=== PATIENT | female | born 1960 | race Caucasian/White ===

== ENCOUNTER 2020-06-22 11:24 | Emergency (ER) | payer OTHER ==
--- OUTSIDE RECORDS SUMMARY | 2020-06-22 11:32 | XMS REPORT | Continuity of Care Document ---
:1960 Author Organization [employer] Information [employer] Care Team Providers Name Role Phone HDmessaging Unavailable Un available Problems Problem Status Onset Classification Date Comments Sourc e Date Reported UNK Active [place] [address] 016 L40.50 - Active [facility] "ARTHROPATHIC [address] PSORIASIS, UNSPEC C50.919 - Active [facility] MALIGNANT NEOPLASM 016 [place] OF UNSP SIT Fatigue (finding) Active Problem 11/08/2016 Data M H OPID 011 migrated Peter Friend from [facility] on 04/16/15. Postmenopausal Active Problem 11/08/2016 Data O PID state (finding) 011 migrated REMINGTON Linton from [facility] on 04/16/15. Fibromyositis Active Problem 11/08/2016 Data OP ID (disorder) 010 migrated REMINGTON Friend from [facility] on 04/16/15. Shoulder pain Active Problem 11/08/2016 Data OP ID (finding) [id number] migrated Peter Friend from [facility] on 04/16/15. Headache (finding) Active Problem 11/08/2016 Data OPID 008 migrated Peter Friend from [facility] on 04/16/15. 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 [facility] Polyarticular Physic ians Inflammation Esophageal Reflux Active 02/26/2014 [facility] Lower Back Pain Active 02/26/2014 [facility] Psoriatic Active 02/26/2014 [facility] Arthropathy Physicia ns Taking Female Active 02/26/2014 [facility] Hormones For Physici ans Postmenopausal HRT Gastroesophageal Resolved Problem 11/08/2016 [facility] reflux disease (disorder) Malignant tumor of Resolved Problem 11/08/2016 [facility] breast (disorder) Depressive Active Problem 11/08/2016 [facility] disorder (disorder) Medications Medication Details Route Status Patient Ordering Order Source Instructions Provider Date Aspirin Enteric 325 mg, No Longer Coated Route: PO, Active 2015 [facility] Drug form: ECTAB, Daily, Dosing Weight 77.273, kg, Start date: 11/06/16 9:00:00 METHODS ANALYST, Duration: 30 day, Stop date: 12/05/16 9:00:00 METHODS ANALYST Oxycodone Notes: (Same Inactive Hydrochloride 5 MG as: 2015 [facility] Oral Tablet Roxicodone) Sulfamethoxazole 1 tab, Route: Inactive 800 MG / PO, Drug 2015 [facility] Trimethoprim 160 Form: TAB, MG Oral Tablet Dosing Weight [Bactrim] 77.273, kg, [id number], Start date: 11/05/16 11:00:00 METHODS ANALYST, Duration: 30 day, Stop date: 12/04/16 23:00:00 METHODS ANALYST hydromorphone Route: IV, Inactive 11/05[facility] (ANES) Drug form: 2015 [facility] INJ, ONCE, Stop date: 11/05/16 10:24:00 METHODS ANALYST rocuronium (ANES) Route: IV, Inactive Drug form: 2015 [facility] INJ, ONCE, Stop date: 11/05/16 10:24:00 METHODS ANALYST acetaminophen Route: IV, Inactive 11/05[facility] (ANES) Drug form: 2015 [facility] INJ, ONCE, Stop date: 11/05/16 10:24:00 METHODS ANALYST fentaNYL (ANES) Route: IV, Inactive 11/05[facility] Drug form: 2015 [facility] INJ, ONCE, Stop date: 11/05/16 10:24:00 METHODS ANALYST Ondansetron 4 mg, Route: Inactive IVP, ONCE, 2015 [facility] Dosing Weight 77.273, kg, PRN Nausea & Vomiting, Start date: 11/05/16 10:24:00 METHODS ANALYST Hydromorphone 0.5 mg, 0.5 Inactive 11/05[facility] mL, Route: 2015 [facility] IVP, Drug form: INJ, Q5Min, Dosing Weight 77.273, kg, PRN Pain Score 7-10, Start date: 11/05/16 10:24:00 METHODS ANALYST, Duration: 4 doses or times, Stop date: Limited # of times Flumazenil Notes: (Same Inactive as: 2015 [facility] Romazicon) Naloxone Notes: Same Inactive as Narcan 2015 [facility] Sulfamethoxazole 1 tab, PO, No Longer 800 MG / [id number], # 7 Active 2015 [facility] Trimethoprim 160 tab, 0 MG Oral Tablet Refill(s) [Bactrim] Aspirin Enteric 325 mg, PO, Active Coated 325 mg oral Daily, # 14 [facility] delayed release tab, 0 tablet Refill(s) Acetaminophen 325 1 tab, PO, No Longer H MG / Hydrocodone Q4H, [facility]N [facility] 5 MG Pain, # 30 Oral Tablet [Irwin tab, 0 5/325] Refill(s), given to patient midazolam (ANES) Route: IV, Inactive Drug form: 2015 [facility] SOLN, ONCE, Stop date: 11/05/16 10:19:00 METHODS ANALYST metoclopramide Route: IV, Inactive (ANES) Drug form: 2015 [facility] INJ, ONCE, Stop date: 11/05/16 10:19:00 METHODS ANALYST ondansetron (ANES) Route: IV, Inactive H Drug form: 2015 [facility] INJ, ONCE, Stop date: 11/05/16 10:19:00 METHODS ANALYST ketOROLAC (ANES) IV, ONCE Inactive 2015 [facility] dexamethasone Route: IV, Inactive (ANES) Drug form: 2015 [facility] INJ, ONCE, Stop date: 11/05/16 10:19:00 METHODS ANALYST Acetaminophen 325 2 tab, Route: Inactive MG / Hydrocodone PO, Drug 2016 [facility] Bitartrate 10 MG Form: TAB, Oral Tablet [Irwin Dosing Weight 10/325] 77.273, kg, Q4H, PRN Pain Score 7-10, Start date: 11/05/16 10:16:00 METHODS ANALYST, Duration: 30 day, Stop date: 12/05/16 10:15:00 METHODS ANALYST Acetaminophen 325 1 tab, Route: Inactive MG / Hydrocodone PO, Dosing 2016 [facility] Bitartrate 5 MG Weight Oral Tablet [Irwin 77.273, kg, 5/325] Q4H, PRN Pain Score 1-3, Start date: 11/05/16 10:16:00 METHODS ANALYST, Duration: 30 day, Stop date: 12/05/16 10:15:00 METHODS ANALYST Dilaudid 0.5 mg, Inactive Route: IV, 2015 [facility] Q3H, Dosing Weight 77.273, kg, PRN, Start date: 11/05/16 10:16:00 METHODS ANALYST, Duration: 30 day, Stop date: 12/05/16 10:15:00 METHODS ANALYST, BTP Ketorolac 4 days. Inactive 2015 [facility] ceFAZolin (ANES) Route: IV, Inactive Drug form: 2015 [facility] INJ, ONCE, Stop date: 11/05/16 10:04:00 METHODS ANALYST lidocaine (ANES) Route: IV, Inactive Drug form: 2015 [facility] INJ, ONCE, Stop date: 11/05/16 10:04:00 METHODS ANALYST propofol (ANES) Route: IV, Inactive Drug form: 2015 [facility] INJ, ONCE, Stop date: 11/05/16 10:04:00 METHODS ANALYST LR 1000 mL INJ Route: IV, Inactive (ANES) Total Volume: 2015 [facility] 1,000, Start date: 11/05/16 9:29:00 METHODS ANALYST, Stop date: 11/05/16 10:29:00 METHODS ANALYST Cefazolin Notes: Same Inactive as: Ancef 2015 [facility] ropivacaine Notes: Inactive NOT FOR IV 2015 [facility] use Ropivacaine 5 mg/mL (49.25 mL) Epinephrine 1 mg/mL (0.5 mL) Clonidine 0.1 mg/mL (0.8 mL) Ketorolac 30 mg/mL (1 mL) Normal Saline 48.45 mL 72 HR Scopolamine 1 patch, Inactive 0.0139 MG/HR Route: [facility], 2015 [facility] Transdermal Patch Drug Form: ERFILM, Dosing Weight 77.273, kg, ONCE, Start date: 11/05/16 8:45:00 METHODS ANALYST, Stop date: 11/05/16 8:45:00 METHODS ANALYST Acetaminophen 325 1 tab, PO, No Longer 12/ M H MG / Hydrocodone Q6H, 0 Active [address] [facility] [address] Bitartrate 10 MG Refill(s) Oral Tablet tramadol 50 mg = 1 Active hydrochloride 50 tab, PO, Q6H, 2015 [facility] Oral Tablet 0 Refill(s) tizanidine 2 mg 2 mg = 1 cap, Active oral capsule PO, Bedtime, [address] [place] Refill(s) Cosentyx 300 mg =, Active SUB-Q, q4wk, 2015 [facility] 0 Refill(s) Arimidex 1 mg, PO, Active Daily, 0 2015 Refill(s) metoprolol 25 mg = 1 Active tartrate 25 mg tab, PO, BID, 2015 [facility] oral tablet # 180 tab, 0 Refill(s) duloxetine 60 MG 60 mg = 1 Active Enteric Coated cap, PO, 2015 [facility] t Capsule [Cymbalta] Daily, # 30 cap, 0 Refill(s) gabapentin 600 MG 600 mg = 1 Active Oral Tablet tab, PO, TID, 2015 [facility] ast # 270 tab, 0 Refill(s) Humira Pen 40 ; Start Date: Active MG/0.8ML 01/05/2014[facility] Subcutaneous Kit (Active) Venlafaxine HCl ER ; Start Date: Active 150 MG Oral 12/16/2013; 2013 [facility] Capsule Extended End Date: Release 24 Hour (Active) Venlafaxine HCl ER ; Start Date: Active [place] 150 MG Oral 12/16/2013; 2013 Phys[facility] Capsule Extended End Date: Release 24 Hour (Active) Estradiol 0.1 ; Start Date: Active MG/24HR 11/12/2013; 2012 [facility] Transdermal Patch End Date: Weekly (Active) CeleBREX 200 MG ; Start Date: Active Oral Capsule 10/05/2013; 2012 Physici ans End Date: (Active) Meloxicam 15 MG ; Start Date: Active 09/16/ [place] Oral Tablet 08/03/2013; 2012 Phys[facility] ns End Date: (Active) NexIUM 40 MG Oral ; Start Date: Active 08/03/ [place] Capsule Delayed 08/03/2013; 2012 [facility] Release End Date: (Active) Meloxicam 7.5 MG ; Start Date: Active 08/03/ U T Oral Tablet 08/03/2013; 2012 Physicia ns End Date: (Active) Gabapentin 600 MG ; Start Date: Active 07/24/ [facility] Oral Tablet 07/24/20132012 Physician s (Active) Venlafaxine HCl ER ; Start Date: Active 07/21/ [facility] 150 MG Oral Tablet 07/21/20132012 [facility] Extended Release (Active) 24 Hour Glucosamine Chondr (Active) Active [facility] 500 Complex Oral Physici ans Capsule Climara 0.1 (Active) Active UT MG/24HR [facility] Transdermal Patch Weekly Gabapentin 600 MG (Active) Active [facility] Tab (OR) - [facility] [id number] Allergies, Adverse Reactions, Alerts Substance Category Reaction Severity Reaction Status Date Comments S ource type Reported Not Known [facility] Phys[facility] No Known drug drug Active [facility] Drug allergy allergy Physicia ns Allergies Immunizations No Data Provided for This Section Results Order Name Results Value Reference Date Interpretation Comments Laura rce Range BACTERIAL - MRSA by PCR Negative 11/01 SEROLOGY (11/01/16 11:58 AM) [facility] ABO/Rh O POS 11/01 RESULTS /2015 [facility] BLOOD BANK Antibody Negative 11/01 RESULTS Scrn (11/01/16 11:58 AM) [facility] CHEM PANEL eGFR 108 11/01 Result /2015 Comment: The [facility] eGFR is calculated using the CKD-EPI formula. In most young, healthy individuals the eGFR will be >90 mL/min/1.73m2 . The eGFR declines with age. An eGFR of 60-89 may be normal in some populations, particularly the elderly, for whom the CKD-EPI formula has not been extensively validated. Use of the eGFR is not recommended in the following populations:< br/>
Leighann viduals with unstable creatinine concentration s, including patients and those with serious co-morbid conditions.<b r/>
Patie nts with extremes in muscle mass or diet.

The data above are obtained from the National Kidney Disease Education Program (NKDEP) which additionally recommends that when the eGFR is used in patients with extremes of body mass index for purposes of drug dosing, the eGFR should be multiplied by the estimated BMI. CHEM PANEL Creatinine 0.51 0.50 - 11/01 MH Lvl 1.40 /2015 [facility] CHEM PANEL BUN 9 7 - 22 11/01 [facility] CHEM PANEL CO2 25 24 - 32 11/01 [facility] CHEM PANEL Calcium Lvl 9.3 8.5 - 10.5 11/01 [facility] CHEM PANEL Glucose Lvl 95 70 - 99 11/01 [facility] CHEM PANEL Potassium 4.2 3.5 - 5.1 11/01 MH Lvl /2015 [facility] CHEM PANEL Chloride Lvl 107 95 - 109 11/01 [facility] CHEM PANEL Sodium Lvl 141 135 - 145 11/01 [facility] CHEM PANEL AGAP 13.2 10.0 - 11/01 MH 20.0 /2015 [facility] HEMATOLOGY Segs-Bands # 3.1 1.5 - 8.1 11/01 [facility] HEMAT[facility] Lymphocytes 1.4 1.0 - 5.5 11/01 MH # /2016 [facility] HEMATOLOGY Monocytes # 0.3 0.0 - 0.8 11/01 [facility] HEMATOLOGY Basophils 1.2 0.0 - 1.0 11/01 [facility] HEMATOLOGY Basophils # 0.1 0.0 - 0.2 11/01 [facility] HEMATOLOGY Eosinophils 0.1 0.0 - 0.5 11/01 MH # /2016 [facility] HEMATOLOGY Segs 64.1 45.0 - 11/01 MH 75.0 /2016 [facility] HEMATOLOGY Eosinophils 1.4 0.0 - 4.0 11/01 [facility] HEMATOLOGY Monocytes 5.4 2.0 - 12.0 11/01 [facility] HEMATOLOGY Lymphocytes 27.9 20.0 - 12 MH 40.0 /2016 [facility] HEMATOLOGY MCH 28.7 27.0 - 12 MH 31.0 /2016 [facility] HEMATOLOGY MPV 8.0 7.4 - 10.4 11/01 [facility] HEMATOLOGY MCV 87.1 80.0 - 11/01 MH 98.0 /2016 [facility] HEMATOLOGY Hct 40.7 36.0 - 12 MH 48.0 /2016 [facility] HEMATOLOGY RDW 12.9 11.5 - 11/01 14.5 /2016 [facility] HEMATOLOGY MCHC 33.0 32.0 - 11/01 MH 36.0 /2016 [facility] HEMATOLOGY Platelet 195 133 - 450 11/01 [facility] HEMATOLOGY RBC 4.67 4.20 - 11/01 MH 5.40 /2016 [facility] HEMATOLOGY WBC 4.9 3.7 - 10.4 11/01 [facility] HEMATOLOGY Hgb 13.4 12.0 - 11/01 16.0 /2015 [facility] HEMATOLOGY INR 0.99 0.85 - 11/01 1.17 /2015 [facility] HEMATOLOGY PT 13.3 12.0 - 11/01 MH 14.7 /2015 [facility] HEMATOLOGY PTT 28.5 22.9 - 11/01 35.8 /2016 [facility] Pathology Reports No Data Provided for This Section Diagnostic Reports Report Value Date Source Chest 2 views DX PA and lateral chest: There is minimal calcification in the aortic arch. The cardiomediastinal silhouette, pulmonary vasculature and donald are otherwise within normal limits. The lungs and pleural spaces 11/01/2016 [facility] are clear. There are no sig nificant osseous abnormalities. A right mastectomy with surgical clips in the right axillary region are noted. IMPRESSION: No acute radiographic abnormalities in the chest . [id number] Knee wo contrast MRI EXAMINATION: MRI of the left knee witho ut contrast. 10/18/2016 EVGENY Friend HISTORY: M25.562 Pain in l eft knee; anterior left knee pain and swelling; left knee medial and lateral meniscus tears; left knee effusion FINDINGS: Radiographs dated 10/08/2016 are reviewed. Multiplanar, multisequence magnetic resonance imaging of the left knee is performed with an extremity coil without contrast. Menisci: Medial: There is a horizonta l undersurface tear near the body/posterior horn junction of the medial meniscus. Lateral: There is a small lo ngitudinal tear involving the inner margin of the body of the lateral meniscus with focal meniscal blunting. Ligaments: The cruciate and collateral ligaments are intact. Extensor mechanism: The extensor mechanism is in tact. Muscles: There is normal sig nal intensity and muscle bulk of the musculature at the knee. Cartilage: There is no focal chondrosis or subch ondral marrow edema. Bone: There are no acute fra ctures. There is a lobulated, T2 hyperintense lesion within the supracondylar distal femur most consistent with a low-grade chondroid lesion such as an enchondroma or chondro id rest. There are no suspicious bone marrow rep lacing lesions. Soft tissues: There is a mod erate sized knee effusion with minimal fluid within a Kumar's cyst. IMPRESSION: 1. Horizontal undersurface t ear near the body/posterior horn junction of the left knee medial meniscus. 2. Small longitudinal tear i nvolving the inner margin of the body of the left knee lateral meniscus with focal meniscal blunting. 3. Moderate size left knee e ffusion with minimal fluid within a left knee Kumar's cyst. 4. Lobulated, T2 hyperintens e lesion within the supracondylar distal left femur most consistent with a low-grade chondroid lesion such as an enchondroma or chondroid rest. 5. Intact left knee cruciate and collateral ligaments without left knee chondrosis. Knee 4+ views bilat EXAMINATION: Bilateral knees 3 views each. 1 12/08/2015 EVGENY HANEY HISTORY: Bilateral knee pain; psoriatic arthropa thy; polyarthralgia FINDINGS: Frontal, oblique, and lateral views of each knee are performed without comparison. There are no fractures. The joint spaces are normal. There are no knee effusions. IMPRESSION: 1. Normal radiographic examination of both knees . 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 Current study was evaluated with a Obstetrical Nurse d Detection (CAD) system. Comparison is made to exams dated: 11/04/2009 mamm[facility] - [facility], 09/09/2007 mammogram and 09/04/2005 mammogram. The tissue of both breasts i s heterogeneously dense, which could obscure detection of small masses. There are benign scattered c alcifications in the left breast. Bilateral breast implants are intact. No significant masses, calci fications, or other findings are seen in either breast. There has been no significant interval change. IMPRESSION: BENIGN There is no mammographic rebeka dence of malignancy. A 1 year screening mammogram is recommended. Homar Burns M.D. cm/penrad:05/16/2016 12:52:19 Nuclear Spectroscopist: Clemencia Sams RT(R)(M), [place] maame Friend This exam was dictated and interpreted by [id number] for REMINGTON Friend. letter sent: Normal exam Mammogram BI-RADS: 2 Benign Consultation Notes No Data Provided for This Section Discharge Summaries No Data Provided for This Section History and Physicals No Data Provided for This Section Vital Signs Vital Sign Value Date Comments Source Systolic (mm Hg) 98 11/05/2016 [place] Diastolic (mm Hg) 58 11/05/[address] Respitory Rate 14 11/05/2016 [facility] Systolic (mm Hg) 133 11/05/2016 [place] Diastolic (mm Hg) 59 11/05/[address] Systolic (mm Hg) 112 11/05/2016 [place] Diastolic (mm Hg) 57 11/05/[address] Respitory Rate 12 11/05/2016 [facility] Respitory Rate 23 11/05/2016 [facility] Heart Rate 72 11/01/2016 [facility] Temperature Oral (F) 98.0 F 11/01/2016 [facility] BMI Calculated 29.24 11/01/2016 [facility] Height 162.56 cm 11/01/2016 [facility] Weight 77.273 11/01/2016 [facility] Encounters Location Location Encounter Encounter Reason Attending ADM CO Stat Source Details Type Number For Provider Date Date Visit AUDIT [id number] 07/21 Physician s AUDIT [id number] 07/24 /2012 Physician s NP1, [id number] 08/03 07/24 [place] Provider: FARHANA Marrufo RTHA, Status: Pen, Time: 1:00 PM AUDIT [id number] 08/03 Physician s AUDIT [id number] 08/25 Physician s AUDIT [id number] 08/28 Physician s AUDIT [id number] 08/31 Physician s AUDIT [id number] 09/07 Physician s EST, [id number] 09/07 08/31 [place] Provider: FARHANA Marrufo RTHA, Status: Pen, Time: 2:30 PM AUDIT [id number] 09/14 /2012 Physician s AUDIT [id number] 09/29 Physician s AUDIT [id number] 10/05 Physician s AUDIT [id number] 12/16 /2013 Physician s AUDIT [id number] 12/22 /2013 Physician s AUDIT [id number] 01/01 Physician s AUDIT [id number] 01/14 /2013 Physician s AUDIT [id number] 01/15 /2013 Physician s EST, [id number] 01/18 12/22 [place] Provider: FARHANA Marrufo RTHA, Status: Pen, Time: 3:00 PM AUDIT [id number] 02/26 /2013 Physician s EST, [id number] 04/06 02/26 [place] Provider: FARHANA Marrufo RTHA, Status: Pen, Time: 2:30 PM [facility] Outpt Diag [id number] Mate[place] 05/16 05/17 [facility] [place] [facility] [place] [facility] Outpt Diag [id number] [facility] 10/08 10/09 [facility] [place] [facility] [place] [facility] Outpt Diag [id number] [facility] 10/18 10/19 [facility] [place] [facility] [place] [facility] [id number] [place] 11/05 11/05 [facility] Surgery Pena /2015 [facility] Procedures Procedure Code Date Perfomer Comments Source section [id number] [facility] Cholecystectomy [id number] [facility] ast Hysterectomy [id number] [facility] Mastectomy [id number] [facility] Assessment and Plan Assessment and Plan Date Source Extracted from:Title: Clinical Document 11/05/2016 [facility] Author: Migue Pena MD Date: 11/05/16 Knee Arthroscopy Operative Note Date: 11/05/2016 Location: [facility] Attending: Migue Pena MD Pre-op dx: Left knee medial and lateral meniscus tear (S83.2 32A and S83.272A) Post-op dx: Left knee: Medial meniscus tear (S83.232A) Lateral meniscus tear (S83.272A) Procedure: Left knee arthroscopy with partial medial and lateral me niscectomy ([id number]) Anesthesiologist: Dr. Calle; Daisy Zaldivar CRNA Anesthesia: General Attending: Migue Pena MD 1st Assist: Maged Ornelas T-time: 15 minutes EBL: minimal UOP: no saha IVF: see anesthesia notes Intra-operative findings Chondromalacia: Patella: 0 Femur Medial: 1 Tibia Medial: 1 Trochlea: 0 Femur Lateral: 0 Tibia Lateral: 0 Loose Bodies: none Meniscus: Medial: posterior horn complex tear Lateral: oblique simle tear of body Ligaments: ACL: intact PCL: intact Clincal Indications: Patient is a 56 female with a diagnosis of knee arthritis and concomitant meniscus tears. Patient has persistent pain and mechanical symptoms that are causing the patient disability and pain. The patien t understands the pain can be generated both from the meniscus tears and underlying arthritis. The patient understands the goal of this surgery is to reduce the pain and mechanical symptoms from the men iscus tear, however this will not addres s the patients underlying arthritis and symptoms from her arthritis. X-rays demonstrate minimal osteoarthrit is. The MRI demonstrates a complex medial meniscus tear with extrusion, adjacent edema, and mild cartilage damage. The intra-operative findings are as listed above. Patient understands the risks, benefits, rational, and rehabilitation process inherent with a knee arthroscopy and partial meniscectomy. Patient expressed understanding that risks include but not limite d to bleeding, pain, infection, damage t o nearby structures: vessels, tendons, nerves and ligaments, recurrant tears, need for revision surgery, blood clots in the legs and lungs, stroke, heart attack, and . The patient agreed and gave consent to surgery as indicated. Procedure Note: Positioning: Patient was brought into e operating room and place supine on the OR table. After a successful anesthetic was applied, the operative extremity was prepped and draped in the standard fashi on with a non-sterile tourniquet on the proximal thigh. A surgical time-out was completed; antibiotics, surgical site, and allergies were confirmed. The left lower operative extremity was then exsanguin ated with the esmarch and the tourniquet was inflated. Diagnostic Arthroscopy: Medial and lateral portals were then cre ated in the standard fashion with an 11- blade scalpel. The arthroscope was inserted in the lateral portal and probe in the medial portal. The diagnostic arthrosco py was completed in the following order: the anterior compartment, lateral gutter, medial gutter, medial compartment, notch, then lateral compartment. Pertinent findings are listed above. Partial medial meniscectomy was then com pleted in the standard fashion in the medial compartment alternating between the arthroscopic shaver and arthroscopic bitter. The degenerative tear was excised ta luis care not to damage the peripheral r im, residual cartilage, or over excision. The remaining meniscus was stable to stress without any free flaps. Partial lateral meniscectomy was then co mpleted in the standard fashion in a separate lateral compartment alternating between the arthroscopic shaver and arthroscopic bitters. The degenerative tear was excised taking care not to damage the pe ripheral rim, residual cartilage, over excision, or the popliteus. The remaining lateral meniscus was stable to stress without any free flaps. After these procedures were completed, I irrigated and lavaged the knee with fluid. Arthroscopic fluid was then drained from the knee. I injected the knee with: 40 mg of kenalog and 50 cc of EDGARDO (rupiv icane, epinephrine, clonidine, kenalog) solution. The arthroscopic portals were closed wit h 4-0 nylon, and dressed with xeroform, 4x4s, ABD pads, and an bere wrap. The tourniquet was released. A surgical services assistant was utlized for the en tire procedure. He aided in positioning, retraction, and closure. The surgical services assistant increased the overall effieciency of the case thus decreasing surgical time and carolann-operative morbidity. Post-operative: Patient will recover in the PACU and dis charged home after gait training with physical therapy. Patient is weight bearing as tolerated, no range of motion restrictions. Patient will follow up in clinic for suture removal and release to physic al therapy. Prescriptions were given for Irwin and Bactrim DS and ECASA. Extracted from:Title: Clinical Document Author: Migue Pena MD Date: 11/04/16 CHIEF COMPLAINT: Left knee pain. HISTORY OF PRESENT ILLNESS: The patient is a 56-year-old female who came in with history of left knee pain in the medial and lateral aspect of the left knee. The patient complains of catching and nic ing sensation and pain in deep flexor. The patient complains of twisting injury to her left knee and now has difficulty with prolonged standing and ambulation. PAST MEDICAL HISTORY: Significant for a rthritis, back pain, skin cancer, depression, gallbladder disease, psoriasis, hemorrhoids and tumor. PAST SURGICAL HISTORY: Significant for , mastectomy, hysterectomy with reconstructions. ALLERGIES: NO KNOWN DRUG ALLERGIES. MEDICATIONS: Lopressor, gabapentin, tramadol, hydrocodone, and Cymbalta. SOCIAL HISTORY: The patient denies smoking, alcohol or drug use. FAMILY HISTORY: Positive for coronary a rtery disease, liver disease, hypertension, and arthritis. REVIEW OF SYSTEMS: A 12-system review o f systems questionnaire is completed by the patient and reviewed by myself. Systems evaluated include general, skin, HEENT, psychiatric, pulmonary, , GI, muscu loskeletal, lymphatics, endocrine, cardi ovascular, and neurologic. Pertinent positives are limited to musculoskeletal. Please see HPI for further details. PHYSICAL EXAMINATION: GENERAL: The patient is of mild obese body habitus, no acut e distress. PSYCHIATRIC: Alert and oriented x 3. Demonstrates proper m ood and affect. ABDOMEN: Soft, nontender, and nondistended. EYES: Sclerae are normal. SKIN: No evidence of soft tissue swelling, ecchymosis, or b ruising. CARDIOVASCULAR: 1+ distal radial pulse bilaterally. 1+ DP pulse bilaterally. NEUROLOGIC: 5/5 motor strength in bilat eral hip flexors, quads, hamstrings, TA, EHL, and GS. Light touch intact in L2 through S1 dermatomal distributions. The patient's left knee demonstrates me dial and lateral joint line tenderness t o palpation. Positive Alvin sign. Range of motion is 0 to 120 degrees, 5 degree alignment, and trace varus-valgus laxity. X-RAYS: The patient's left knee series demonstrate no evidence of fracture dislocation. There is some mild subchondral sclerosis but no evidence of mkut-sw-ypca articulation and no evidence of end-stage arthritic disease. The patient's left knee MRI demonstrates medial meniscus tear and lateral meniscus tear, still preserved cartilage, no evidence of a bony edema. ASSESSMENT: The patient with left knee medial and lateral meniscus tear ICD-10 code S83.232A and S83.272A. PLAN: Left knee arthroscopy, partial meniscectomy At this point, we will start the patient on Voltaren gel and home exercise program. We discussed the possibility of left knee arthroscopic treatment versus steroid injections and physical therapy. Ancef for iv abx prophylaxis ECASA for DVT pprophylaxis Risks and benefits discussed with the latasha shaikh. Risks of surgery including bleeding, pain, infection, damage to the neurovascular structures, possible recurrence of tear, blood clots (legs/lungs), stroke, heart attack and . Plan of Care Plan of Care Date Source [Q] BUN/CREATININE RATIO W/O 02/26/2014 [facility] EGFR 09/14/2013 Routine [Q] BUN/CREATININE RATIO W/O 01/15/2014 [facility] EGFR 09/14/2013 Routine [Q] BUN/CREATININE RATIO W/O 01/14/2014 [facility] EGFR 09/14/2013 RoutineFollow-up visit in 6 months 01/01/2014 Routine [Q] BUN/CREATININE RATIO W/O 01/01/2014 [facility] EGFR 09/14/2013 Routine[QLH] CMP W/EGFR 01/01/2014 Routine[QLH] TSH, 3RD GENERATION W/REFLEX TO FT4 01/01/2014 RoutineFollow-up visit in 6 months 01/01/2014 Routine [Q] BUN/CREATININE RATIO W/O 12/22/2013 [facility] EGFR 09/14/2013 Routine [Q] BUN/CREATININE RATIO W/O 12/16/2013 [facility] 09/14/2013 Routine [Q] BUN/CREATININE RATIO W/O 10/05/2013 [facility] 09/14/2013 Routine [Q] BUN/CREATININE RATIO W/O 09/29/2013 [facility] 09/14/2013 Routine MRI Spine Sacrum w/wo contrast 09/14/2013 [id number] 08/28/2013 Routine[Q] BUN/CREATININE RATIO W/O EGFR 09/14/2013 Routine MRI Spine Sacrum w/wo contrast 09/07/2013 [facility] [id number] 08/28/2013 Routine Social History Social History Date Source Social History TypeResponse 11/01/2016 [facility] [place] Substance Abuse Use: None. 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) History of Current Smoker (305.1); (Resolved) Former Smoker (V15.82); (Active) Family History Value Date Source Family history of Coronary 02/26/2014 [facility] Artery Disease (V17.49); (Active) Family history of Scleroderma (Active) Family history of Hypertension (V17.49); (Active) Family history of Coronary 01/15/2014 [facility] Artery Disease (V17.49); (Active) Family history of Scleroderma (Active) Family history of Hypertension (V17.49); (Active) Family history of Coronary 01/14/2014 [facility] Artery Disease (V17.49); (Active) Family history of Scleroderma (Active) Family history of Hypertension (V17.49); (Active) Family history of Coronary 01/01/2014 [facility] Artery Disease (V17.49); (Active) Family history of Scleroderma (Active) Family history of Hypertension (V17.49); (Active) Family history of Coronary 12/22/2013 [facility] Artery Disease (V17.49); (Active) Family history of Scleroderma (Active) Family history of Hypertension (V17.49); (Active) Family history of Coronary 12/16/2013 [facility] Artery Disease (V17.49); (Active) Family history of Scleroderma (Active) Family history of Hypertension (V17.49); (Active) Family history of Coronary 10/05/2013 [facility] Artery Disease (V17.49); (Active) Family history of Scleroderma (Active) Family history of Hypertension (V17.49); (Active) Family history of Coronary 09/29/2013 [facility] Artery Disease (V17.49); (Active) Family history of Scleroderma (Active) Family history of Hypertension (V17.49); (Active) Family history of Coronary 09/14/2013 [facility] Artery Disease (V17.49); (Active) Family history of Scleroderma (Active) Family history of Hypertension (V17.49); (Active) Family history of Coronary 09/07/2013 [facility] Artery Disease (V17.49); (Active) Family history of Scleroderma (Active) Family history of Hypertension (V17.49); (Active) Family history of Coronary 08/31/2013 [facility] Artery Disease (V17.49); (Active) Family history of Scleroderma (Active) Family history of Hypertension (V17.49); (Active) Family history of Coronary 08/28/2013 [facility] Artery Disease (V17.49); (Active) Family history of Scleroderma (Active) Family history of Hypertension (V17.49); (Active) Family history of Coronary 08/25/2013 [facility] Artery Disease (V17.49); (Active) Family history of Scleroderma (Active) Family history of Hypertension (V17.49); (Active) Family history of Coronary 08/03/2013 [facility] Artery Disease (V17.49); (Active) Family history of Scleroderma (Active) Family history of Hypertension (V17.49); (Active) Family history of Coronary 07/24/2013 [facility] Artery Disease (V17.49); (Active) Family history of Scleroderma (Active) Family history of Hypertension (V17.49); (Active) Advance Directives Order Name Results Value Date Source Advance Directives Advance Directives No Advance 02/26/2014 [facility] Directives available. Advance Directives Advance Directives No Advance 01/15/2014 [facility] Directives available. Advance Directives Advance Directives No Advance 01/14/2014 [facility] Directives available. Advance Directives Advance Directives No Advance 01/01/2014 [facility] Directives available. Advance Directives Advance Directives No Advance 12/22/2013 [facility] Directives available. Advance Directives Advance Directives No Advance 12/16/2013 [facility] Directives available. Advance Directives Advance Directives No Advance 10/05/2013 [facility] Directives available. Advance Directives Advance Directives No Advance 09/29/2013 [facility] Directives available. Advance Directives Advance Directives No Advance 09/14/2013 [facility] Directives available. Advance Directives Advance Directives No Advance 09/07/2013 [facility] Directives available. Advance Directives Advance Directives No Advance 08/31/2013 [facility] Directives available. Advance Directives Advance Directives No Advance 08/28/2013 [facility] Directives available. Advance Directives Advance Directives No Advance 08/25/2013 [facility] Directives available. Advance Directives Advance Directives No Advance 08/03/2013 [facility] Directives available. Advance Directives Advance Directives No Advance 07/24/2013 [facility] Directives available. Advance Directives Advance Directives No Advance 07/21/2013 [facility] Directives available. Functional Status No Data Provided for This Section
--- OUTSIDE RECORDS SUMMARY | 2020-06-22 11:34 | XMS REPORT | Continuity of Care Document ---
:1960 Author Organization [facility] t Address [address] [place] [address] Care Team Providers Name Role Phone JIMMY Attending Clinician Unavailable PASTORA Attending Clinician Unavailable BHAVYA Attending Clinician Unavailable Elayne Attending Clinician Unavailable TARA Attending Clinician Unavailable Yoandy Pacheco Attending Clinician Fletcher Marquez Attending Clinician NELIDA Attending Clinician Unavailable ALLYSON Attending Clinician [facility] Attending Clinician Unavailable [facility] Attending Clinician Unavailable Josef Holly Attending Clinician ANTONI Attending Clinician Unavailable Problems Condition Condition Condition Status Onset Resolution Last Treating Co mments Source Name Details Category Date Date Treatment Clinician Date UNK Diagnosis Active 2015-112016-11-05 Mem oria 2-09 06:41:00 l UNK 00:00: [place] 00 Active 10/26/2016 [place] L40.50 - Diagnosis Active 2015-112016-11-12 M emoria "ARTHROPAT - 15:40:00 l [facility] L40.50 - 00:01: Darrius gregorio PSORIASIS, "ARTHROPAT 00 UNSPEC HIC PSORIASIS, UNSPEC Active 10/08/2016 [facility] [place] C50.919 - Diagnosis Active 2016-05-16 Memoria MALIGNANT 6-14 11:22:00 l NEOPLASM C50.919 00:01: Shayla nn OF UNSP - 00 SIT MALIGNANT NEOPLASM OF UNSP SIT Active 05/01/2016 [facility] [place] Fatigue Problem Active 2016-11-08 Casimiro melodie (finding) 3- 01:48:45 l Fatigue 00:00: [place] (finding) 00 Active 02/06/2011 Problem 11/08/2016 Data migrated from [employer] on 04/16/15. Peter Alexandra [place] Postmenopa Problem Active 2016-11-08 Peter weinstein usal state 3- 01:48:45 l (finding) 00:00: [place] Postmenopa 00 usal state (finding) Active 02/06/2011 Problem 11/08/2016 Data migrated from [employer] on 04/16/15. Peter Alexandra [place] Fibromyosi Problem Active 2016-11-08 Peter weinstein tis - 01:48:45 l (disorder) 00:00: Darrius n Fibromyosi 00 tis (disorder) Active 03/07/2010 Problem 11/08/2016 Data migrated from [employer] on 04/16/15. Peter Alexandra [facility] Shoulder Problem Active 2016-11-08 Mem oria pain 04-15 01:48:45 l (finding) Shoulder 00:00: Her torres pain 00 (finding) Active 04/15/2008 Problem 11/08/2016 Data migrated from [employer] on 04/16/15. Peter Alexandra [facility] Headache Problem Active 2016-11-08 Mem oria (finding) - 01:48:45 l Headache 00:00: Darrius n (finding) 00 Active 12/08/2007 Problem 11/08/2016 Data migrated from [employer] on 04/16/15. Peter Alexandra [facility] History of History of Problem Resolve Univers fibromyosi fibromyosi HL7.CCDAR2 d ity of tis tis [place] [facility] ans History of History of Problem Resolve Univers hematuria hematuria HL7.CCDAR2 d ity of [place] Physici ans History of History of Problem Resolve Univers malignant malignant HL7.CCDAR2 d ity of neoplasm neoplasm [place] of breast of breast Phys ici ans History of History of Problem Resolve Univers Skin Skin HL7.CCDAR2 d ity of Cancer Cancer [place] [facility] Inflammato Inflammato Problem Active U nivers ry ry HL7.CCDAR2 it[place] of polyarthro [place]arthro [place] anival anival Physici ans Esophageal Esophageal Problem Active U nivers reflux reflux HL7.CCDAR2 ity of [place] [facility] ans Muscle Muscle Problem Active Univers spasm spasm HL7.CCDAR2 ity of [place] [facility] ans Psoriasis Psoriasis Problem Active Uni vers HL7.CCDAR2 ity of [place] [facility] ans Cervicalgi Cervicalgi Problem Active U nivers a a HL7.CCDAR2 ity of [place] [facility] ans Lump or Lump or Problem Active Univers mass in mass in HL7.CCDAR2 ity of breast breast [place] [facility] Urinary Urinary Problem Active Univers tract tract HL7.CCDAR2 [place] Nasal Nasal Problem Active Univers vestibulit vestibulit HL7.CCDAR2 ity of is is [place] [facility] ans Rhinitis Rhinitis Problem Active Unive rs HL7.CCDAR2 ity of [place] [facility] ans RAD RAD Problem Active Univers (reactive (reactive HL7.CCDAR2 ity of airway airway [place] disease) disease) Physic i ans H. H. Problem Active Univers influenzae influenzae HL7.CCDAR2 [place] infection [place] Acute URI Acute URI Problem Active Uni vers HL7.CCDAR2 ity of [place] [facility] ans Laryngotra Laryngotra Problem Active U nivers cheitis cheitis HL7.CCDAR2 ity of [place] [facility] ans Acute Acute Problem Active Univers cystitis cystitis HL7.CCDAR2 it y of [place] [facility] ans Nodular Nodular Problem Active Univers lesion on lesion on HL7.CCDAR2 [place]y of surface [place] skin skin [place] ans Lip lesion Lip lesion Problem Active U nivers HL7.CCDAR2 ity of [place] [facility]ici ans Pain, low Pain, low Problem Active Uni vers back back HL7.CCDAR2 ity of [place] [facility] ans 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.CCDAR2 ity of female female [place] breast breast Physici ans Dupuytren' Dupuytren' Problem Active U nivers s s HL7.CCDAR2 [place] of contractur contractur [place] Breast Breast Problem Active Univers cancer cancer HL7.CCDAR2 ity of [place] [facility] ans Psoriatic Psoriatic Problem Active Uni vers arthropath arthropath HL7.CCDAR2 ity of y y [place] [facility] ans Postmenopa Postmenopa Problem Active U nivers usal usal HL7.CCDAR2 ity of hormone hormone [place] replacemen replacemen Ph ysici t therapy t therapy ans Parotitis Parotitis Problem Active Uni vers HL7.CCDAR2 ity of [place] [facility] ans Cardiac Cardiac Problem Active Univers arrhythmia arrhythmia HL7.CCDAR2 ity of [place] [facility] ans Palpitatio Palpitatio Problem Active U nivers ns ns HL7.CCDAR2 ity of [place] [facility] ans At risk At risk Problem Active Univers for for HL7.CCDAR2 ity of coronary coronary [place] artery artery Physici disease disease ans Tachycardi Tachycardi Problem Active U nivers a a HL7.CCDAR2 ity of [place] Physici ans Tear of Tear of Problem Active Univers medial medial HL7.CCDAR2 ity of meniscus meniscus [place] of knee, of knee, Physic i left, left, ans initial initial encounter encounter Complex Complex Problem Active Univers tear of tear of HL7.CCDAR2 ity of medial medial [place] meniscus meniscus Physic i as current as current an s injury, injury, left, left, initial initial encounter encounter Complex Complex Problem Active Univers tear of tear of HL7.CCDAR2 ity of lateral lateral [place] meniscus meniscus Physic i of left of left ans knee knee Depressive Depressive Problem Active U nivers disorder disorder HL7.CCDAR2 it y of [place] Physici ans Pain in Pain in Problem Active Univers left knee left knee HL7.CCDAR2 ity of [place] Physici ans Multiple Multiple Problem Active Unive rs joint pain joint pain HL7.CCDAR2 ity of [place] [facility]ici ans Limb pain Limb pain Problem Active Uni vers HL7.CCDAR2 ity of [place] [facility]ici ans Degenerati Degenerati Problem Active U nivers on of on of HL7.CCDAR2 ity of cervical cervical [place] interverte interverte Ph ysici bral disc bral disc ans History of History of Problem Resolve Univers fibrocysti fibrocysti HL7.CCDAR2 d ity of c disease c disease [place] of breast of breast Phys ici ans History of History of Problem Resolve Univers H/O breast H/O breast HL7.CCDAR2 d ity of reconstruc reconstruc [place] t[place]ion [place]ici ans Vitamin D Vitamin D Problem Active Uni vers insufficie insufficie HL7.CCDAR2 ity of ncy ncy [place] [facility] Depression Problem Active 2014-02-26 M emoria 20:47:10 l [place] Depression Active 02/26/2014 [place] [facility] Joint Problem Active 2014-02-26 Memor ia Pain, 20:47:10 l Localized Joint Darrius n In More Pain, Than One Localized Joint In More Than One Joint Active 4 [place] [facility] Urinary Problem Active 2014-02-26 Casimiro melodie Tract 20:47:10 l Infection Urinary Herm alin Tract Infection Active 4 [place] [facility] Symmetric Problem Active 2014-02-26 Me moria Polyarticu 20:47:10 l lar [place] Inflammati Symmetric on Polyarticu lar Inflammati on Active 02/26/2014 [place] [facility] Esophageal Problem Active 2014-02-26 M emoria Reflux 20:47:10 l [place] Esophageal Reflux Active 4 [place] [facility] Lower Back Problem Active 2014-02-26 M emoria Pain 20:47:10 l Lower [place] Back Pain Active 4 [place] [facility] Psoriatic Problem Active 2014-02-26 Me moria Arthropath 20:47:10 l y [place] Psoriatic Arthropath y Active 02/26/2014 [facility] Taking Problem Active 2014-02-26 Memor ia Female 20:47:10 l Hormones Taking Darrius n For Female Postmenopa Hormones usal HRT For Postmenopa usal HRT Active 4 [place] [facility] Allergies, Adverse Reactions, Alerts Allergy Allergy Status Severity Reaction(s) Onset Inactive Treating Comm ents Source Name Type Date Date Clinician Not Not Active Memoria Known Known l [place] No Known No Known Active Memori a Drug Drug l Allergie Allergie Darrius n s s Family History Family Member Diagnosis Comments Start Date Stop Date Source Unknown Family Family history of Family History University of Member Coronary Artery [place] [facility]icians Disease Unknown Family Family history of Family History University of Member Scleroderma [place] [facility] Unknown Family Family history of Family History University of Member Hypertension [place] Physic ians Unknown Family Family History 2013-07-24 2013-07-24 Memori al [place] Member 17:15:37 17:15:37 Father Family history of Univers ity of Heart disease [place] Physi cians Brother Family history of Univers ity of Heart disease [place] [facility] Social History Social Habit Start Date Stop Date Quantity Comments Source Social History 2014-02-26 2014-02-26 Brown Gisela carmen 20:47:10 20:47:10 Smoking Status Start Date Stop Date Source Former smoker [facility] Physicians Medications Ordered Filled Start Stop Current Ordering Indication Dosage Frequency Signature Comments Components Source Medication Medication Date Date Medication? Clinician (SIG) Name Name Folic Acid Folic Acid 2017-11 Yes REINA 1 QD TAKE ONE Univers 1 MG Oral 1 MG Oral 1-01 FLETCHER TABLET BY ity of Tablet Tablet 10:06: MARQUEZ MOUTH [place] 01 M.D. DAILY Physici ans Methotrexat Methotrexat 2017- Yes REINA 8 1xW TAKE 8 Univers e 2.5 MG e 2.5 MG 0-08 FLETCHER TABLET ity of Oral Tablet Oral Tablet 09:29: MARQUEZ Weekly [place] 01 M.D. Physici ans Diclofenac Diclofenac Yes REINA Apply 4 Univers Sodium 1 % Sodium 1 % 2-23 FLETCHER grams ity of Transdermal Transdermal 00:00: MARQUEZ topically [place] Gel Gel 00 M.D. to knees Physici twice ans daily as needed. TiZANidine TiZANidine 2016-11 Yes REINA TAKE 1 Univers HCl - 4 MG HCl - 4 MG 2-12 FLETCHER TABLET BY ity of Oral Tablet Oral Tablet 16:28: MARQUEZ MOUTH AT [place] 56 M.D. BEDTIME Physici ans Gabapentin Gabapentin 2016-11 Yes REINA TAKE 1 Univers 600 MG Oral 600 MG Oral 2-12 FLETCHER TABLET BY ity of Tablet Tablet 16:27: MARQUEZ MOUTH 3 [place] 59 M.D. TIMES A Physici DAY ans Metoprolol Metoprolol Yes MOHAMMAD Q12H Take 1 Univers Succinate Succinate 8-10 MADJID tablet by ity of ER 25 MG ER 25 MG 09:26: M.D. mouth [place] Oral Tablet Oral Tablet 42 every 12 Physici Extended Extended hours ans Release 24 Release 24 Hour Hour Sertraline Sertraline Yes SHAOJIE QD TAKE 1 Univers HCl - 100 HCl - 100 1-13 GUILLORY M.D. TABLET ity of MG Oral MG Oral 00:00: DAILY. [place] Tablet Tablet 00 Physici ans Aspirin 2015-11 No 325 mg, Memoria Enteric 2-20 Route: PO, l Coated 15:00: Drug form: Shayla nn 00 ECTAB, Daily, Dosing Weight 77.273, kg, Start date: 11/06/16 9:00:00 IMPROVEMENT MANAGER, Duration: 30 day, Stop date: 12/05/16 9:00:00 IMPROVEMENT MANAGER Oxycodone 2015-11 No Notes: Memori a Hydrochlori 01-06 (Same as: l de 5 MG 17:08: Roxicodone Herm alin Oral Tablet ) Sulfamethox 2015-11 No 1 tab, Casimiro melodie azole 800 01-06 Route: PO, l MG / 17:00: Drug Form: [place] Trimethopri 00 TAB, m 160 MG Dosing Oral Tablet Weight [Bactrim] 77.273, kg, [id number], Start date: 11/05/16 11:00:00 IMPROVEMENT MANAGER, Duration: 30 day, Stop date: 12/04/16 23:00:00 IMPROVEMENT MANAGER hydromorpho 2015-11 No Route: IV, Memoria ne (ANES) 01-06 Drug form: l 16:24: INJ, ONCE, Stop date: 11/05/16 10:24:00 IMPROVEMENT MANAGER rocuronium 2015-11 No Route: IV, M emoria (ANES) 01-06 Drug form: l 16:24: INJ, ONCE, Stop date: 11/05/16 10:24:00 IMPROVEMENT MANAGER acetaminoph 2015-11 No Route: IV, Memoria en (ANES) 01-06 Drug form: l 16:24: INJ, ONCE, Stop date: 11/05/16 10:24:00 IMPROVEMENT MANAGER fentaNYL 2015-11 No Route: IV, Mem oria (ANES) 01-06 Drug form: l 16:24: INJ, ONCE, Stop date: 11/05/16 10:24:00 IMPROVEMENT MANAGER Ondansetron 2015-11 No 4 mg, Memor ia 01-06 Route: l 16:24: IVP, ONCE, Dosing Weight 77.273, kg, PRN Nausea & Vomiting, Start date: 11/05/16 10:24:00 IMPROVEMENT MANAGER Hydromorpho 2015-11 No 0.5 mg, Mem oria ne 01-06 0.5 mL, l 16:24: Route: IVP, Drug form: INJ, Q5Min, Dosing Weight 77.273, kg, PRN Pain Score 7-10, Start date: 11/05/16 10:24:00 IMPROVEMENT MANAGER, Duration: 4 doses or times, Stop date: Limited # of times Flumazenil 2015-11 No Notes: Memor ia - (Same as: l 16:24: Romazicon) Naloxone 2015-11 No Notes: Memoria 01-06 Same as l 16:24: Narcan Sulfamethox 2015-11 No 1 tab, PO, Memoria azole 800 01-06 [id number], # l MG / 16:21: 7 tab, 0 [place] Trimethopri 00 Refill(s) m 160 MG Oral Tablet [Bactrim] Aspirin 2015-11 Yes 325 mg, Memoria Enteric 19 PO, Daily, l Coated 325 16:21: # 14 tab, He rmann mg oral 00 0 delayed Refill(s) release tablet Acetaminoph 2015-11 No 1 tab, PO, Memoria en 325 MG / 01-06 Q4H, PRN l Hydrocodone 16:21: Pain, # 30 [place] Bitartrate 00 tab, 0 5 MG Oral Refill(s), Tablet given to [Earle patient 5/325] midazolam 2015-11 No Route: IV, Me moria (ANES) 01-06 Drug form: l 16:19: SOLN, ONCE, Stop date: 11/05/16 10:19:00 IMPROVEMENT MANAGER metoclopram 2015-11 No Route: IV, Memoria rick (ANES) 01-06 Drug form: l 16:19: INJ, ONCE, Stop date: 11/05/16 10:19:00 IMPROVEMENT MANAGER ondansetron 2015-11 No Route: IV, Memoria (ANES) 01-06 Drug form: l 16:19: INJ, ONCE, Stop date: 11/05/16 10:19:00 IMPROVEMENT MANAGER ketOROLAC 2015-11 No IV, ONCE Casimiro melodie (ANES) 01-06 l 16:19: dexamethaso 2015-11 No Route: IV, Memoria ne (ANES) 01-06 Drug form: l 16:19: INJ, ONCE, Stop date: 11/05/16 10:19:00 IMPROVEMENT MANAGER Acetaminoph 2015-11 No 2 tab, Casimiro melodie en 325 MG / 01-06 Route: PO, l Hydrocodone 16:16: Drug Form: [place] Bitartrate 00 TAB, 10 MG Oral Dosing Tablet Weight [Earle 77.273, 10/325] kg, Q4H, PRN Pain Score 7-10, Start date: 11/05/16 10:16:00 IMPROVEMENT MANAGER, Duration: 30 day, Stop date: 12/05/16 10:15:00 IMPROVEMENT MANAGER Acetaminoph 2015-11 No 1 tab, Casimiro melodie en 325 MG / 2-19 Route: PO, l Hydrocodone 16:16: Dosing Herm alin Bitartrate 00 Weight 5 MG Oral 77.273, Tablet kg, Q4H, [Earle PRN Pain 5/325] Score 1-3, Start date: 11/05/16 10:16:00 IMPROVEMENT MANAGER, Duration: 30 day, Stop date: 12/05/16 10:15:00 IMPROVEMENT MANAGER Dilaudid 2015-11 No 0.5 mg, Memori a 01-06 Route: IV, l 16:16: Q3H, [place] 00 Dosing Weight 77.273, kg, PRN, Start date: 11/05/16 10:16:00 IMPROVEMENT MANAGER, Duration: 30 day, Stop date: 12/05/16 10:15:00 IMPROVEMENT MANAGER, BTP Ketorolac 2015-11 Yes 4 days. Casimiro melodie 2-19 l 16:16: [place] 00 ceFAZolin 2015-11 No Route: IV, Me moria (ANES) 2- Drug form: l 16:04: INJ, ONCE, Stop date: 11/05/16 10:04:00 IMPROVEMENT MANAGER lidocaine 2015-11 No Route: IV, Me moria (ANES) 2-19 Drug form: l 16:04: INJ, ONCE, Stop date: 11/05/16 10:04:00 IMPROVEMENT MANAGER propofol 2015-11 No Route: IV, Mem oria (ANES) 2-19 Drug form: l 16:04: INJ, ONCE, Stop date: 11/05/16 10:04:00 IMPROVEMENT MANAGER LR 1000 mL 2015-11 No Route: IV, M emoria INJ (ANES) 2- Total l 15:29: Volume: [place] 00 1,000, Start date: 11/05/16 9:29:00 IMPROVEMENT MANAGER, Stop date: 11/05/16 10:29:00 IMPROVEMENT MANAGER Cefazolin 2015-11 No Notes: Memori a 2- Same as: l 15:00: Ancef [place] 00 ropivacaine 2015-11 No Notes: Memoria 01-06 NOT FOR IV l 15:00: use [place] 00 Ropivacain e 5 mg/mL (49.25 mL) Epinephrin e 1 mg/mL (0.5 mL) Clonidine 0.1 mg/mL (0.8 mL) Ketorolac 30 mg/mL (1 mL) Normal Saline 48.45 mL 72 HR 2015-11 No 1 patch, Memoria Scopolamine 01-06 Route: l 0.0139 14:45: TOP, Drug Darrius n MG/HR 00 Form: Transdermal ERFILM, Patch Dosing Weight 77.273, kg, ONCE, Start date: 11/05/16 8:45:00 IMPROVEMENT MANAGER, Stop date: 11/05/16 8:45:00 IMPROVEMENT MANAGER Acetaminoph 2015-11 No 1 tab, PO, Memoria en 325 MG / 2-15 Q6H, 0 l Hydrocodone 17:24: Refill(s) H ermann Bitartrate 00 10 MG Oral Tablet tramadol 2015-11 Yes 50 mg = 1 Casimiro melodie hydrochlori 2-15 tab, PO, l de 50 MG 17:23: Q6H, 0 [place] Oral Tablet 00 Refill(s) tizanidine 2015-11 Yes 2 mg = 1 Mem oria 2 mg oral 2-15 cap, PO, l capsule 17:22: Bedtime, 0 Herm alin 00 Refill(s) Cosentyx 2015-11 Yes 300 mg =, Casimiro melodie 2-15 SUB-Q, l 17:21: q4wk, 0 [place] 00 Refill(s) Arimidex 2015-11 Yes 1 mg, PO, Casimiro melodie 2-15 Daily, 0 l 17:20: Refill(s) [place] 00 metoprolol 2015-11 Yes 25 mg = 1 Me moria tartrate 25 2-15 tab, PO, l mg oral 17:20: BID, # 180 Herm alin tablet 00 tab, 0 Refill(s) duloxetine 2015-11 Yes 60 mg = 1 Me moria 60 MG 2-15 cap, PO, l Enteric 17:19: Daily, # Darrius n Coated 00 30 cap, 0 Capsule Refill(s) [Cymbalta] gabapentin 2015-11 Yes 600 mg = 1 M emoria 600 MG Oral 2-15 tab, PO, l Tablet 17:19: TID, # 270 Shayla nn 00 tab, 0 Refill(s) Letrozole Letrozole Yes Mateo 1 QD TAKE 1 Univers 2.5 MG Oral 2.5 MG Oral 8-19 Elayne TABLET ity of Tablet Tablet 00:00: M.D. DAILY. [place] 00 Physici ans Hydrocodone Hydrocodone Yes 1 Q12H TAKE 1 Univers -Acetaminop -Acetaminop 6-30 TABLET ity of hen 10-325 hen 10-325 00:00: Every [place] MG Oral MG Oral 00 twelve Physici Tablet Tablet hours ans Cosentyx Cosentyx Yes REINA Inject Uni vers Sensoready Sensoready 6-30 FLETCHER 300mg (2 ity of Pen 150 Pen 150 00:00: MARQUEZ syringes) [place] MG/ML MG/ML 00 M.D. subcutaneo Physici Subcutaneou Subcutaneou us every 4 ans s Solution s Solution weeks Auto-inject Auto-inject or or Probiotic Probiotic Yes 1 QD TAKE 1 U nivers Oral Oral 6-30 CAPSULE ity of Capsule Capsule 00:00: DAILY 00 Physici ans Humira Pen Yes ; Start Casimiro melodie 40 MG/0.8ML 01-05 Date: l Subcutaneou 06:00: 01/05/2014 [place] s Kit 00 (Active) [place]imara 0.1 Yes (Active) M emoria MG/24HR 2-04 l Transdermal 20:50: Darrius n Patch 11 Weekly Venlafaxine Yes ; Start Mem oria HCl ER 150 - Date: l MG Oral 06:00: 12/16/2013 Herm alin Capsule 00 ; End Extended Date: Release Hour (Active) Venlafaxine Yes ; Start Mem oria HCl ER 150 -29 Date: l MG Oral 06:00: 12/16/2013 Herm alin Capsule 00 ; End Extended Date: Release Hour (Active) Estradiol 2012-11 Yes ; Start Memor ia 0.1 MG/24HR 01-13 Date: l Transdermal 06:00: 11/12/2013 Kogn Patch 00 ; End Weekly Date: (Active) CeleBREX 2012-11 Yes ; Start Memori a 200 MG Oral 18 Date: l Capsule 06:00: 10/05/2013 Herm alin 00 ; End Date: (Active) Glucosamine 2012-11 Yes (Active) M emoria Chondr 500 1-12 l Complex 16:50: [place] Oral 25 Capsule Meloxicam Yes ; Start Memor ia 15 MG Oral 16 Date: l Tablet 05:00: 08/03/2013 Shayla nn 00 ; End Date: (Active) NexIUM 40 Yes ; Start Memor ia MG Oral 16 Date: l Capsule 05:00: 08/03/2013 Herm alin Delayed 00 ; End Release Date: (Active) Meloxicam Yes ; Start Memor ia 7.5 MG Oral 08-03 Date: l Tablet 05:00: 08/03/2013 Shayla nn 00 ; End Date: (Active) Gabapentin Yes (Active) Me moria 600 MG Tab 07-24 l (OR) - 17:15: [place] [id number] 37 ivated Gabapentin Yes ; Start Casimiro melodie 600 MG Oral 07-24 Date: l Tablet 05:00: 07/24/2013 Shayla nn 00 (Active) Venlafaxine Yes ; Start Mem oria HCl ER 150 07-21 Date: l MG Oral 05:00: 07/21/2013 Herm alin Tablet 00 (Active) Extended Release 24 Hour Vitamin D Vitamin D Yes 1 1xW TAKE 1 Uni vers TABS TABS TABLET ity of WEEKLY [place] Physici ans Vital Signs Vital Name Observation Time Observation Value Comments Source BP Systolic 2018-05-31 103 mm[Hg] [facility] 11:27:00 Position: [place] Physician s Sitting BP Diastolic 2018-05-31 67 mm[Hg] Location[facility] 11:27:00 Position: [place] Physician s Sitting Height 2018-05-31 64 [in_us] [facility] 11:27:00 [place] Physician s Weight 2018-05-31 177.125 [lb_av] [place] o f 11:27:00 [place] Physician s Body Mass Index 2018-05-31 30.4 kg/m2 University o f Calculated 11:27:00 [place] Physician s Heart Rate 2018-05-31 61 /min University 11:27:00 [place] Physician s BP Systolic 2018-01-10 104 mm[Hg] Location: [facility]; [facility] 11:43:00 Position: [place] Physician s Sitting BP Diastolic 2018-01-10 70 mm[Hg] Location: [facility]; [facility] 11:43:00 Position: [place] Physician s Sitting Height 2018-01-10 64 [in_us] University 11:43:00 [place] Physician s Weight 2018-01-10 176.5625 [lb_av] University 11:43:00 [place] Physician s Body Mass Index 2018-01-10 30.31 kg/m2 University o f Calculated 11:43:00 [place] Physician s Temperature 2018-01-10 97.9 [degF] Method: Oral University of 11:43:00 [place] Physician s Heart Rate 2018-01-10 77 /min University 11:43:00 [place] Physician s BP Systolic 2017-10-26 113 mm[Hg] Location: [facility]; [facility] 10:41:00 Position: [place] Physician s Sitting BP Diastolic 2017-10-26 74 mm[Hg] Location: [facility]; [facility] 10:41:00 Position: [place] Physician s Sitting Height 2017-10-26 64 [in_us] University of 10:41:00 [place] Physician s Weight 2017-10-26 176.125 [lb_av] University o f 10:41:00 [place] Physician s Body Mass Index 2017-10-26 30.23 kg/m2 University o f Calculated 10:41:00 [place] Physician s Heart Rate 2017-10-26 89 /min University 10:41:00 [place] Physician s Systolic (mm Hg) 2016-11-05 [facility] He rmann 18:45:00 Diastolic (mm Hg) 2016-11-05 [facility] ermann 18:45:00 Respitory Rate 2016-11-05 [facility] Herm alin 17:00:00 Systolic (mm Hg) 2016-11-05 [facility] rmann 17:00:00 Diastolic (mm Hg) 2016-11-05 [facility] ermann 17:00:00 Systolic (mm Hg) 2016-11-05 [facility] rmann 16:45:00 Diastolic (mm Hg) 2016-11-05 [facility] 16:45:00 Respitory Rate 2016-11-05 [facility] Herm alin 16:45:00 Respitory Rate 2016-11-05 [facility] Herm alin 16:30:00 Heart Rate 2016-11-01 [facility] Darrius n 17:37:00 Temperature Oral 2016-11-01 98.0 F [facility] Jensen rmann (F) 17:37:00 BMI Calculated 2016-11-01 [facility] Herm alin 17:01:00 Height 2016-11-01 162.56 cm [facility] Darrius n 17:01:00 Weight 2016-11-01 [facility] Darrius n 17:01:00 Procedures Procedure Date / Time Performing Clinician Source Performed [QLH] CBC (INCLUDES 2018-05-31 00:00:00 [facility] DIFF/PLT) Physicians [QLH] CMP W/EGFR 2018-05-31 00:00:00 [facility] Physicians [QLH] C-REACTIVE PROTEIN 2018-05-31 00:00[facility] SED RATE BY MODIFIED 2018-05-31 00:00[facility] [QLH] VITAMIN D, 2018-05-31 00:00:00 [facility] 25-HYDROXY, LC/MS/MS Physicians [QLH] CBC (INCLUDES 2018-01-10 00:00:00 [facility] DIFF/PLT) Physicians [QLH] CMP W/EGFR 2018-01-10 00:00:00 [facility] Physicians [QLH] C-REACTIVE PROTEIN 2018-01-10 00:00:00 Uni [facility] Physicians [QLH] SED RATE BY MODIFIED 2018-01-10 00:00:00 [facility] [QL] QUANTIFERON(R)-TB 2018-01-10 00:00:00 [facility] PIPER Physicians [QLH] CBC (INCLUDES 2017-10-26 00:00:00 [facility] DIFF/PLT) Physicians [QLH] CMP W/EGFR 2017-10-26 00:00:00 [facility] Physicians [QLH] C-REACTIVE PROTEIN 2017-10-26 00:00:00 Uni [facility] Physicians [QLH] SED RATE BY MODIFIED 2017-10-26 00:00:00 [facility] History of Tonsillectomy [facility] With Adenoidectomy Physicians History of Hysterectomy [facility] Physicians section [place] [facility] Cholecystectomy [facility] [place] [facility] [place] [facility] Plan [facility] Planned Activity Planned Date Details Comments Source Future Scheduled 2014-02-26 Plan of Care [code [facility] [place] Test 20:47:10 = 69302-5] Future Scheduled 2014-01-15 Plan of Care [code [facility] [place] Test 20:30:50 = 59721-9] Future Scheduled 2014-01-14 Plan of Care [code [facility] [place] Test 15:16:05 = 97421-5] Future Scheduled 2014-01-01 Plan of Care [code [facility] [place] Test 18:15:45 = 71104-1] Future Scheduled 2013-12-22 Plan of Care [code [facility] [place] Test 20:50:11 = 68958-3] Future Scheduled 2013-12-16 Plan of Care [code [facility] [place] Test 16:46:47 = 20539-5] Future Scheduled 2013-10-05 Plan of Care [code [facility] [place] Test 16:49:38 = 16045-8] Future Scheduled 2013-09-29 Plan of Care [code [facility] [place] Test 16:50:25 = 76407-6] Future Scheduled 2013-09-14 Plan of Care [code [facility] [place] Test 14:01:17 = 27413-4] Future Scheduled 2013-09-07 Plan of Care [code [facility] [place] Test 18:45:44 = 75244-7] Future Scheduled [QLH] CBC Approx 17Feb2018 Univers ity of Test (INCLUDES [place] [facility] DIFF/PLT) [code = [QLH] CBC (INCLUDES DIFF/PLT)] Future Scheduled [QLH] CMP W/EGFR Approx 17Feb2018 Uni versity of Test [code = [QLH] CMP [place] [facility] W/EGFR] Future Scheduled [QLH] C-REACTIVE Approx [id number] Uni versity of Test PROTEIN [code = [place] [facility] [QLH] C-REACTIVE PROTEIN] Future Scheduled [QLH] SED RATE BY Approx 17Feb2018 Un iversity of Test MODIFIED [place] [facility] WESTERGREN [code = [QLH] SED RATE BY MODIFIED WESTERGREN] Future Scheduled [QL] Approx [id number] Univers ity of Test QUANTIFERON(R)-TB [place] [facility] GOLD [code = [QL] QUANTIFERON(R)-TB GOLD] Future Scheduled [QLH] CBC Approx [id number] Univers ity of Test (INCLUDES [place] [facility] DIFF/PLT) [code = [QLH] CBC (INCLUDES DIFF/PLT)] Future Scheduled [QLH] CMP W/EGFR Approx [id number] Uni versity of Test [code = [QLH] CMP [place] [facility] W/EGFR] Future Scheduled [QLH] C-REACTIVE Approx [id number] Uni versity of Test PROTEIN [code = [place] [facility] [QLH] C-REACTIVE PROTEIN] Future Scheduled [QLH] SED RATE BY Approx [id number] Un iversity of Test MODIFIED [place] [facility] WESTERGREN [code = [QLH] SED RATE BY MODIFIED WESTERGREN] Future Scheduled [QLH] VITAMIN D, Approx [id number] Uni versity of Test 25-HYDROXY, [place] [facility] LC/MS/MS [code = [QLH] VITAMIN D, 25-HYDROXY, LC/MS/MS] Future Scheduled [QLH] CBC Approx [id number] Univers ity of Test (INCLUDES [place] [facility] DIFF/PLT) [code = [QLH] CBC (INCLUDES DIFF/PLT)] Future Scheduled [QLH] CMP W/EGFR Approx [id number] Uni versity of Test [code = [QLH] CMP [place] [facility] W/EGFR] Future Scheduled [QLH] C-REACTIVE Approx [id number] Uni versity of Test PROTEIN [code = [place] [facility] [QLH] C-REACTIVE PROTEIN] Future Scheduled [QLH] SED RATE BY Approx [id number] Un iversity of Test MODIFIED [place] [facility] WESTERGREN [code = [QLH] SED RATE BY MODIFIED WESTERGREN] Future Scheduled [QLH] VITAMIN D, Approx [id number] Uni versity of Test 25-HYDROXY, [place] [facility] LC/MS/MS [code = [QLH] VITAMIN D, 25-HYDROXY, LC/MS/MS] Encounters Start End Encounter Admission Attending Care Care Encounter Source Date/Time Date/Time Type Type Clinicians Facility Department ID 2018-08-30 2018-08-30 JORGE Sigala [id number] Univers 10:30:00 10:30:00 t; MARQUEZREINA of [place], Zulma BYNUM M.D. Physi ci M.D. ans 2018-05-31 2018-05-31 JORGE Sigala [place] [id number] Univers 11:30:00 11:30:00 t; MARQUEZREINA ROUSE of [place], Specialty Wily as FLETCHER, MDavianD. Physi ci M.D. ans 2018-03-01 2018-03-01 JORGE Sigala [facility] [id number] Univers 11:30:00 11:30:00 t; JIMMYREINA of [place], Zulma BYNUM M.D. Physi ci M.D. ans 2018-01-10 2018-01-10 JORGE Sigala [place] [id number] Univers 11:00:00 11:00:00 t; JIMMYREINA of [place], Specialty Wily as FLETCHER, MHumberto. Physi ci M.D. ans 2017-10-26 2017-10-26 JORGE Sigala [place] [id number] Univers 10:30:00 10:30:00 t; REINA MARQUEZ of [place], Specialty Wily as FLETCHER, MDavianD. Physi ci M.D. ans 2017-07-27 2017-07-27 JORGE Sigala UTP [id number] Univers 10:00:00 10:00:00 t; JIMMYREINA of [place], [place] Kip BYNUM Physi ci M.D. ans 2017-01-26 2017-01-26 JORGE Sigala UTP [id number] Univers 10:00:00 10:00:00 t; JIMMY REINA beavers of [place], [place]ul[place] BYNUM M.D. Physi ci M.D. ans 2016-12-19 2016-12-19 JORGE Stanton [id number] Univers 14:00:00 14:00:00 t; GUILLORY, ruthann OLIVA M.D. [place] K[facility] Physici ans 2016-11-30 2016-11-30 Kalpana LATIF, JORGE UTP [id number] Univers 14:45:00 14:45:00 t; Denis MORALES M.D. [place] Ar MORALES M.D. ans 2016-11-23 2016-11-23 JORGE Santacruz UTP [id number] Univers 10:15:00 10:15:00 t; Kip Galindo of Elayne [place] Ar Galindo M.D. ans 2016-11-21 2016-11-21 JORGE Granados UTP [id number] Univers 10:15:00 10:15:00 t; MIGUE PACHECO M.D. ity [facility] 2016-11-05 2016-11-05 Outpatient JOSE Pacheco [facility] [id number] 06:41:00 13:00:00 Migue [facility] 04 2016-11-05 2016-11-05 [facility] JORGE UTP [id number] Univers 08:00:00 08:00:00 t; MIGUE PACHECO M.D. ity [facility] ans 2016-10-26 2016-10-26 JORGE Granados UTP [id number] Univers 09:00:00 09:00:00 t; MIGUE PACHECO M.D. ity [facility] ans 2016-10-18 2016-10-18 Outpatient SHARON Marquez [facility] [id number] 13:16:00 23:59:00 Reina 04 Fletcher 2016-10-08 2016-10-08 [facility] [id number] 13:23:00 23:59:00 Reina 02 Fletcher 2016-10-08 2016-10-08 Kalpana MARQUEZ, JORGE UTP [id number] Univers 11:00:00 11:00:00 t; [facility] [place] Kip BYNUM [facility] MTino ans 2016-08-30 2016-08-30 Kalpana IRVINGD, [facility] UTP [id number] Univers 15:15:00 15:15:00 t; RYAN KRAUSE i ty of Kip DAVIS [place] Kip Physici ans 2016-08-30 2016-08-30 [facility] NELIDA[facility] JORGE UTP [id number] Univers 15:00:00 15:00:00 t; RYAN KRAUSE i ty of Kip DAVIS [place] Kip Physici ans 2016-07-06 2016-07-06 [facility] Elayne, [facility] UTP [id number] Univers 12:30:00 12:30:00 t; Kip Galindo it y of [place] Holly Physici M.D. ans 2016-07-06 2016-07-06 [facility] JIMMY, [facility] UTP [id number] Univers 11:30:00 11:30:00 t; REINA MARQUEZ of REINA BYNUMCameron, [place] Kip BYNUM Kip ans 2016-07-06 2016-07-06 [facility] ALLYSON, [facility] UTP [id number] Univers 09:30:00 09:30:00 t; TRAMAINE VALADEZ i ty of Kip REDD [place] Kip Physici ans 2016-05-29 2016-05-29 [facility] NELIDA, [facility] UTP [id number] Univers 15:15:00 15:15:00 t; RYAN KRAUSE i ty of Kip DAVIS M.D. Physici ans 2016-05-29 2016-05-29 [id number] Univers 15:00:00 15:00:00 t; , STRESS ity o f [facility] S, STRESS Physic i ans 2016-05-22 2016-05-[id number] Univers 11:00:00 11:00:00 t; , ECHO ity of [facility] S, ECHO Physici ans 2016-05-17 2016-05-17 [facility] NELIDA[facility] JORGE UTP [id number] Univers 09:00:00 09:00:00 t; RYAN KRAUSE i ty of Kip DAVIS [place] Kip Physici ans 2016-05-16 2016-05-16 [facility] [id number] 11:13:00 23:59:00 Mateo Bahena 2016-05-04 2016-05-04 Appointmen JORGE LATIF UTP [id number] Univers 08:30:00 08:30:00 t; Denis MORALES M.D. [place] Ar MORALES M.D. ans 2016-04-06 2016-04-06 Appointmen ALLYSON, JORGE UTP [id number] Univers 14:00:00 14:00:00 t; TRAMAINE VALADEZ i ty of Kip REDD [place] Kip Physici ans 2016-04-06 2016-04-06 Appointmen JORGE Holly UTP [id number] Univers 10:45:00 10:45:00 t; Kip Galindo y of [place] Holly Physici M.D. ans 2016-01-06 2016-01-06 Appointmen ALLYSON, JORGE UTP [id number] Univers 14:00:00 14:00:00 t; TRAMAINE VALADEZ i ty of Kip REDD [place] Kip Physic ans 2015-11-14 2015-11-14 Appointmen JORGE CORRALES UTP [id number] Univers 13:00:00 13:00:00 t; NIURKA CORRALES NP ity of PADILLA BAH [place] Physici ans 2014-02-26 2014-02-26 Outpatient MHIE MHIE [id number] 15:47:11 15:47:10 2014-01-15 2014-01-15 Outpatient MHIE MHIE [id number] 14:30:51 14:30:50 2014-01-14 2014-01-14 Outpatient MHIE MHIE [id number] 09:16:06 09:16:05 2014-01-01 2014-01-01 Outpatient MHIE MHIE [id number] 12:15:45 12:15:45 2013-12-22 2013-12-22 Outpatient MHIE MHIE [id number] 14:50:12 14:50:11 2013-12-16 2013-12-16 Outpatient MHIE IE [id number] 10:46:47 10:46:47 2013-10-05 2013-10-05 Outpatient MHIE MHIE [id number] 10:49:39 10:49:38 2013-09-29 2013-09-29 Outpatient MHIE MHIE [id number] 10:50:25 10:50:25 2013-09-14 2013-09-14 Outpatient MHIE MHIE [id number] 09:01:17 09:01:17 2013-09-07 2013-09-07 Outpatient MHIE MHIE [id number] 13:45:44 13:45:44 2013-08-31 2013-08-31 Outpatient MHIE MHIE [id number] 18:00:26 18:00:25 2013-08-28 2013-08-28 Outpatient MHIE MHIE [id number] 16:50:50 16:50:49 2013-08-25 2013-08-25 Outpatient MHIE IE [id number] 10:05:57 10:05:57 2013-08-03 2013-08-03 Outpatient MHIE IE [id number] 15:16:59 15:16:59 2013-07-24 2013-07-24 Outpatient MHIE MHIE [id number] 12:15:38 12:15:37 2013-07-21 2013-07-21 Outpatient MHIE IE [id number] 17:53:02 17:52:41 Results Test Description Test Time Test Comments Results Result Comments Source [[facility]] CMP W/EGFR 2018-04-18 13:03:00 Test Item Value Reference Range Interpretation Comme nts Glucose, Serum (test code = 86 mg/dL 65-99 2345-7) BUN (test code = 3094-0) 13 mg/dL 6-24 Creatine, Serum; Below Low 0.45 mg/dL 0.57-1.00 Threshold (test code = 2160-0) eGFR If NonAfricn Am (test 112 mL/min/1.7 >59 code = 22014-1) eGFR If Africn Am (test code 129 mL/min/1.7 >59 = 79085-4) BUN/Creatine Ratio; Above 29 9-23 High Threshold (test code = 3097-3) Sodium, Serum (test code = 140 mmol/L 765-561 9823-2) Potassium, Serum (test code = 5.2 mmol/L 3.5-5.2 2823-3) Chloride, Serum (test code = 101 mmol/L 96-106 2075-0) Carbon Dioxide, Total (test 22 mmol/L 18-29 Effective April 28, 2018 code = 2027-9) Carbon Dioxid e, Total refer ence interval will be binain jonh to: Age Male Female 0 days - 30 days 16 - 29 16 - 29 31 days - 1 yea r 15 - 15 - 25 2 years - 5 years 17 - 26 17 - 26 6 years - 12 years 19 - 19 - >12 year s 20 - - Calcium, Serum (test code = 9.5 mg/dL 8.7-10.2 69204-2) Protein, Total, Serum (test 6.7 g/dL 6.0-8.5 code = 2885-2) Albumin, Serum (test code = 4.7 g/dL 3.5-5.5 1751-7) Globulin, Total (test code = 2.0 g/dL 1.5-4.5 37271-4) A/G Ratio; Above High 2.4 1.2-2.2 Threshold (test code = 1759-0) Bilirubin, Total (test code = 0.2 mg/dL 0.0-1.2 1975-2) Alkaline Phosphatase, S; 122 {IU/L} 39-117 Above High Threshold (test code = 6768-6) AST (SGOT) (test code = 21 {IU/L} 0-40 1920-8) ALT (SGPT) (test code = 20 {IU/L} 0-32 1742-6) [facility]] CBC (INCLUDES DIFF/PLT)2018-04-18 13:03:00 Test Item Value Reference Range Interpretation Comments WBC (test code = 6690-2) 6.8 {x10E3/uL} 3.4-10.8 RBC (test code = 789-8) 4.49 {x10E6/uL} 3.77-5.28 Hemoglobin (test code = 13.2 g/dL 11.1-15.9 718-7) Hematocrit (test code = 42.8 % 34.0-46.6 4544-3) MCV (test code = 787-2) 95 fL 79-97 MCH (test code = 785-6) 29.4 pg 26.6-33.0 MCHC; Below Low Threshold 30.8 g/dL 31.5-35.7 (test code = 786-4) RDW (test code = 788-0) 14.5 % 12.3-15.4 Platelets (test code = 777-3) 254 {x10E3/uL} 150-379 Neutrophils (test code = 57 % Not Estab. 770-8) Lymphs (test code = 736-9) 35 % Not Estab. Monocytes (test code = 6 % Not Estab. 5905-5) Eos (test code = 713-8) 2 % Not Estab. Basos (test code = 706-2) 0 % Not Estab. Immature Cells (test code = See Comment Immature Cells) Neutrophils (Absolute) (test 3.9 {x10E3/uL} 1.4-7.0 code = 751-8) Lymphs (Absolute) (test code 2.4 {x10E3/uL} 0.7-3.1 = 731-0) Monocytes(Absolute) (test 0.4 {x10E3/uL} 0.1-0.9 code = 742-7) Eos (Absolute) (test code = 0.1 {x10E3/uL} 0.0-0.4 711-2) Baso (Absolute) (test code = 0.0 {x10E3/uL} 0.0-0.2 704-7) Immature Granulocytes (test 0 % Not Estab. code = 57303-5) Immature Grans (Abs) (test 0.0 {x10E3/uL} 0.0-0.1 code = 26373-7) NRBC (test code = 72868-5) See Comment Hematology Comments: (test See Comment code = 87516-6) [facility][QL] QUANTIFERON(R)-TB [id number] 13:03:00 Test Item Value Reference Range Interpretation Comments QuantiFERON See Comment Incubated, spec imen Incubation (test forwarded t o [facility], code = [place], [place] QuantiFERON forcompletion o f the Incubation) assay. QuantiFERON TB Negative Negative Gold (test code = QuantiFERON TB Gold) QuantiFERON See Comment To be considere d positive Criteria (test a specimen wiliam have a code = 8251-1) TB Ag minus N ilvalue greater than or equal to 0.35 IU/mL and in addition the TB Agminus Nil value must be greater than or equal t o 25% of the Nilvalue. T here may be insufficient information in these values todiffer entiate between some ne gative and some indetermin ate testvalues. QuantiFERON TB Ag 0.08 {IU/mL} Value (test code = 64107-6) QuantiFERON Nil 0.08 {IU/mL} Value (test code = 21844-3) QuantiFERON 8.58 {IU/mL} Mitogen Value (test code = 83119-6) QFT TB Ag minus 0.00 {IU/mL} Nil Value (test code = 20679-1) Interpretation: See Comment The QuantiFE MARY ANNE TB Gold (test code = (in [place] [address]-4) intended for us e as an aidin the diagn osis of TB infection. Nega tive results suggest that thereis no TB i nfection. In patients wit h high suspicion of ex posure, anegative test should be repeated. A pos itive test indicates infec tionwith Mycobacterium tuberculosis. A romain individuals withouttubercul osis infection, a po sitive test may be due to exposure Patty. anthony cole, Sara taylor or M . marinum. On the Internet , go tocdc.gov/tb fo r further details. [facility]] SED RATE BY MODIFIED [id number] 13:03:00 Test Item Value Reference Range Interpretation Comments Sedimentation Rate-Westergren (test 7 {mm/hr} 0-40 code = 4537-7) [facility]] C-REACTIVE [id number] 13:03:00 Test Item Value Reference Range Interpretation Comments C-Reactive Protein, Quant (test code 3.9 mg/L 0.0-4.9 = 1987-) [facility]] CMP [id number] 12:07:00 Test Item Value Reference Range Interpretation Comments Glucose, Serum (test code = 90 mg/dL 65-99 2345-7) BUN (test code = 3094-0) 13 mg/dL 6-24 Creatine, Serum (test code = 0.61 mg/dL 0.57-1.00 2160-0) eGFR If NonAfricn Am (test 101 mL/min/1.7 >59 code = 89604-9) eGFR If Africn Am (test code = 116 mL/min/1.7 >59 62854-7) BUN/Creatine Ratio (test code 21 08-10 = 3097-3) Sodium, Serum; Above High 145 mmol/L 134-144 Threshold (test code = 2951-2) Potassium, Serum (test code = 4.7 mmol/L 3.5-5.2 2823-3) Chloride, Serum (test code = 104 mmol/L 96-106 2075-0) Carbon Dioxide, Total (test 25 mmol/L 18-29 code = 8-9) Calcium, Serum (test code = 9.7 mg/dL 8.7-10.2 80518-9) Protein, Total, Serum (test 6.3 g/dL 6.0-8.5 code = 2885-2) Albumin, Serum (test code = 4.4 g/dL 3.5-5.5 1751-7) Globulin, Total (test code = 1.9 g/dL 1.5-4.5 75345-3) A/G Ratio; Above High 2.3 1.2-2.2 Threshold (test code = 1759-0) Bilirubin, Total (test code = 0.5 mg/dL 0.0-1.2 1975-2) Alkaline Phosphatase, S (test 106 {IU/L} 39-117 code = 6768-6) AST (SGOT) (test code = 20 {IU/L} 0-40 1920-8) ALT (SGPT) (test code = 13 {IU/L} 0-32 1742-6) [facility]] CBC (INCLUDES DIFF/PLT)2017-12-02 12:07:00 Test Item Value Reference Range Interpretation Comments WBC (test code = 6690-2) 6.5 {x10E3/uL} 3.4-10.8 RBC (test code = 789-8) 4.25 {x10E6/uL} 3.77-5.28 Hemoglobin (test code = 12.5 g/dL 11.1-15.9 718-7) Hematocrit (test code = 38.8 % 34.0-46.6 4544-3) MCV (test code = 787-2) 91 fL 79-97 MCH (test code = 785-6) 29.4 pg 26.6-33.0 MCHC (test code = 786-4) 32.2 g/dL 31.5-35.7 RDW (test code = 788-0) 14.0 % 12.3-15.4 Platelets (test code = 777-3) 248 {x10E3/uL} 150-379 Neutrophils (test code = 59 % Not Estab. 770-8) Lymphs (test code = 736-9) 32 % Not Estab. Monocytes (test code = 6 % Not Estab. 5905-5) Eos (test code = 713-8) 2 % Not Estab. Basos (test code = 706-2) 1 % Not Estab. Immature Cells (test code = See Comment Immature Cells) Neutrophils (Absolute) (test 3.9 {x10E3/uL} 1.4-7.0 code = 751-8) Lymphs (Absolute) (test code 2.1 {x10E3/uL} 0.7-3.1 = 731-0) Monocytes(Absolute) (test 0.4 {x10E3/uL} 0.1-0.9 code = 742-7) Eos (Absolute) (test code = 0.1 {x10E3/uL} 0.0-0.4 711-2) Baso (Absolute) (test code = 0.0 {x10E3/uL} 0.0-0.2 704-7) Immature Granulocytes (test 0 % Not Estab. code = 51100-1) Immature Grans (Abs) (test 0.0 {x10E3/uL} 0.0-0.1 code = 03094-9) NRBC (test code = 21878-2) See Comment Hematology Comments: (test See Comment code = 41158-4) [facility]] SED RATE BY MODIFIED [id number] 12:07:00 Test Item Value Reference Range Interpretation Comments Sedimentation Rate-Westergren 13 {mm/hr} 0-40 (test code = 4537-7) [facility]] C-REACTIVE [id number] 12:07:00 Test Item Value Reference Range Interpretation Comments C-Reactive Protein, Quant; Above 9.3 mg/L 0.0-4.9 High Threshold (test code = 1988-5) [facility]iciansBACT[facility] - [id number] 17:58:00Negative (11/01/16 11:58 AM)[facility] [id number] 17:58:00Negative (11/01/16 11:58 AM)[facility]annCHE[facility] [id number] 17:58:36531Hkudtppq HermannCHEM [id number] 17:58:000.51[facility]annCHEM [id number] 17:58:009[facility]annCHEM [id number] 17:58:0025[facility] HermannCHEM TBHLX1406-99-19 17:58:009.3[facility]annCHEM WVZAS0835-15-09 17:58:0095 [facility]annCHEM [id number] 17:58:004.2[facility]annCHEM PANEL 2016-11-01 17:58:08264Ghodornu HermannCHEM BMGPM2164-26-29 17:58:30761Gshvoghp HermannCHEM PWQRS8647-31-22 17:58:0013.2[facility] FnpwnxsJTATPCSFZO3269-71-08 17:58:003.1[facility] SipsgpoDIIBRJZKNZ6021-54-42 17:58:001.4[facility] [place] LFALKLNKRV3550-58-77 17:58:000.3[facility] WybnfyjMORFWNTNTD6108-27-01 17:58:001.2 Memorial EcacebyUQNQGTQDIT2826-90-40 17:58:000.1[facility]annHEMATOLOGY 2016-11-01 17:58:000.1[facility] LylithfJNIIZKNGWV4924-62-85 17:58:0064.1[facility] YhqwenaECDEGTAPZZ2829-78-89 17:58:001.4[facility] CgdejzsCPTOHAFTMO2247-72-36 17:58:005.4[facility] OipskviFFNADBNNGT5563-64-03 17:58:0027.9[facility] [place] KCFBFXDEVZ3909-17-23 17:58:00 Test Item Value Reference Range Interpretation Comments MCH (test code = MCH) 28.7 pg 27.0-31.0 [facility] ImflgttJWPQGPAJTG1364-01-88 17:58:008.0[facility] HermannHEMATOLOGY 2016-11-01 17:58:0087.1[facility] QvhaqjjRZYMPZOQFL0941-41-63 17:58:0040.7[facility] PbzptspUGDJOXZHXI1786-06-64 17:58:0012.9[facility] GygjnstKPSQAXPRTT0665-02-98 17:58:0033.0[facility] QuprmcjAYMVBYYHAF1011-01-49 17:58:97599Wobirmvr [place] AVHPNPVOJF2834-64-82 17:58:004.67[facility] UowonsaPMFEJMNCNT6067-23-21 17:58:00 4.9[facility]orial BdscnrzVNSSOCHRJL9693-27-44 17:58:0013.4[facility] HermannHEMATOLOGY 2016-11-01 17:58:000.99[facility] BtxkrxzFXCEBAOIWB6093-11-52 17:58:00 Test Item Value Reference Range Interpretation Comments PT (test code = PT) 13.3 s 12.0-14.7 Memorial XzvkaelPPYZZEGKUX9836-85-68 17:58:00 Test Item Value Reference Range Interpretation Comments PTT (test code = PTT) 28.5 s 22.9-35.8 [facility]
--- NOTE | 2020-06-22 11:52 | EDPHYS ---
Physician Documentation [facility] Name: Vikki Lopez Age: 60 yrs Sex: Female : 1960 Arrival Date: 06/22/2020 Time: 11:31 Bed 18 Private MD: ED Physician Quoc Nicholson HPI: 06/22 11:47 This 60 yrs old Female presents to ER via Ambulatory with complaints of Cat jmm Bite. 11:47 the patient presents with a swollen area of the right arm. Onset: The symptoms/episode jmm began/occurred acutely, yesterday. Possible cause(s): cat bite. Associated signs and symptoms: Pertinent positives: drainage, erythema, swelling, Pertinent negatives: fever. Modifying factors: the symptoms are alleviated by. This is a 60 year old female with no chronic medical conditions that presents to the ED with complaints of pain and swelling to her right arm. Patient states she was bitten by a cat yesterday and states swelling was worst last evening. Denies fever. . Historical: - Allergies: 11:38 No Known Allergies; ss - Immunization history:: Adult Immunizations up to date. - Social history:: Smoking status: Patient reports the use of cigarette tobacco products, denies chronic smoking, but will smoke occasionally. ROS: 11:47 Constitutional: Negative for fever, chills, and weight loss, Cardiovascular: Negative jmm for chest pain, palpitations, and edema, Respiratory: Negative for shortness of breath, cough, wheezing, and pleuritic chest pain. 11:47 Skin: Positive for erythema, swelling. 11:47 All other systems are negative. Exam: 11:47 Constitutional: This is a well developed, well nourished patient who is awake, alert, jmm and in no acute distress. Head/Face: atraumatic. Eyes: EOMI, no conjunctival erythema appreciated ENT: Moist Mucus Membranes Neck: Trachea midline, Supple Chest/axilla: Normal chest wall appearance and motion. Cardiovascular: Regular rate and rhythm. No edema appreciated Respiratory: Normal respirations, no respiratory distress appreciated Abdomen/GI: Non distended, soft Back: Normal ROM 11:47 Skin: erythema and induration appreciated to the right forearm, FROM appreciated to the right elbow. Full radial pulse, compartments are soft, NVI. 11:47 Neuro: Orientation: is normal, Mentation: is normal, Memory: is normal. 11:47 Psych: Behavior/mood is pleasant, cooperative. Vital Signs: 11:33 BP 111 / 79; Pulse 78; Resp 16; Temp 97.7(TE); Pulse Ox 98% on R/A; Weight 74.84 kg; ss Height 5 ft. 4 in. (162.56 cm); Pain 8/10; 11:33 Body Mass Index 28.32 (74.84 kg, 162.56 cm) ss MDM: 11:43 Patient medically screened. [facility] 11:50 Data reviewed: vital signs, nurses notes. Counseling: I had a detailed discussion with nadia the patient and/or guardian regarding: the historical points, exam findings, and any diagnostic results supporting the discharge/admit diagnosis, the need for outpatient follow up, to return to the emergency department if symptoms worsen or persist or if there are any questions or concerns that arise at home. ED course: Patient is alert and non toxic in appearance in the ED. PE finding consistent with cellulitis. Will treat with oral abx and patient is otherwise given strict return precautions. Patient understood and agrees with the plan of care. . Administered Medications: No medications were administered Disposition: 06/23 08:03 Co-signature as Attending Physician, Quoc Nicholson MD I agree with the assessment and kdr plan of care. Disposition: 06/22/20 11:51 Discharged to Home. Impression: Cellulitis of Arm, Cat Bite. - Condition is Stable. - Discharge Instructions: Animal Bite. - Prescriptions for Augmentin 875- 125 mg Oral Tablet - take 1 tablet by ORAL route every 12 hours for 10 days; 20 tablet. Zithromax Z- Luke 250 mg Oral Tablet - take 1 tablet by ORAL route as directed for 5 days Day 1 - take two (2) tablets one time. Day 2, 3, 4 , 5 take one (1) tablet once daily.; 6 tablet. Ultracet 37.5- 325 mg Oral Tablet - take 1 tablet by ORAL route every 6 hours - for up to 5 days; do not exceed 8 tablets per day.; 20 tablet. - Medication Reconciliation Form, Thank You Letter, Antibiotic Education, Prescription Opioid Use form. - Follow up: Private Physician; When: 2 - 3 days; Reason: Recheck today's complaints, Continuance of care, Re-evaluation by your physician. Signatures: Quoc Nicholson MD MD kdr Mickail, Joel, PA PA jmm Smirch, Shelby, GENE RN ss Brigid Doyle RN RN tw2 Corrections: (The following items were deleted from the chart) 06/22 12:08 11:51 06/22/2020 11:51 Discharged to Home. Impression: Cellulitis of Arm; Cat Bite. tw2 Condition is Stable. Forms are Medication Reconciliation Form, Thank You Letter, Antibiotic Education, Prescription Opioid Use. Follow up: Private Physician; When: 2 - 3 days; Reason: Recheck today's complaints, Continuance of care, Re-evaluation by your physician. nadia
--- NOTE | 2020-06-22 11:52 | ER ---
Nurse's Notes [facility] Name: Vikki Lopez Age: 60 yrs Sex: Female : 1960 Arrival Date: 06/22/2020 Time: 11:31 Bed 18 Private MD: Diagnosis: Cellulitis of Arm;Cat Bite Presentation: 06/22 11:33 Chief complaint: Patient states: Cat bite to R elbow that occurred last night. Pt ss reports she is unsure whether or not her cat is up to date with vaccinations. Coronavirus screen: Client denies travel out of the [place] in the last 14 days. At this time, the client does not indicate any symptoms associated with coronavirus-19. Ebola Screen: Patient denies exposure to infectious person. Patient denies travel to an Ebola-affected area in the 21 days before illness onset. Initial Sepsis Screen: Does the patient meet any 2 criteria? No. Patient's initial sepsis screen is negative. Does the patient have a suspected source of infection? No. Patient's initial sepsis screen is negative. Risk Assessment: Do you want to hurt yourself or someone else? Patient reports no desire to harm self or others. Onset of symptoms was June 21, 2020. 11:33 Method Of Arrival: Ambulatory ss 11:33 Acuity: KETAN 4 ss Historical: - Allergies: 11:38 No Known Allergies; ss - Immunization history:: Adult Immunizations up to date. - Social history:: Smoking status: Patient reports the use of cigarette tobacco products, denies chronic smoking, but will smoke occasionally. Screenin:44 Abuse screen: Denies threats or abuse. Nutritional screening: No deficits noted. tw2 Tuberculosis screening: No symptoms or risk factors identified. Fall Risk None identified. Assessment: 11:44 Reassessment: provider at bedside at this time. tw2 12:05 General: Appears in no apparent distress. well groomed, Behavior is calm, cooperative, tw2 appropriate for age. Pain: Denies pain. Neuro: Level of Consciousness is awake, alert, obeys commands, Oriented to person, place, time, situation. Cardiovascular: Capillary refill < 3 seconds Patient's skin is warm and dry. Respiratory: Airway is patent Respiratory effort is even, unlabored, Respiratory pattern is regular, symmetrical. GI: No signs and/or symptoms were reported involving the gastrointestinal system. Derm: redness and swelling noted to RIGHT elbow. Musculoskeletal: Circulation, motion, and sensation intact. Range of motion: intact in all extremities. 12:07 Reassessment: Patient appears in no apparent distress at this time. No changes from tw2 previously documented assessment. Patient is alert, oriented x 3, equal unlabored respirations, skin warm/dry/pink. Vital Signs: 11:33 BP 111 / 79; Pulse 78; Resp 16; Temp 97.7(TE); Pulse Ox 98% on R/A; Weight 74.84 kg; ss Height 5 ft. 4 in. (162.56 cm); Pain 8/10; 11:33 Body Mass Index 28.32 (74.84 kg, 162.56 cm) ED Course: 11:31 Patient arrived in ED. ds1 11:38 Triage completed. ss 11:38 Arm band placed on right wrist. ss 11:39 Bed in low position. Call light in reach. tw2 11:40 Frank Snowden PA is PHCP. [facility] 11:40 Quoc Nicholson MD is Attending Physician. [facility] 11:44 Brigid Doyle, GENE is Primary Nurse. tw2 12:07 No provider procedures requiring assistance completed. Patient did not have IV access tw2 during this emergency room visit. Administered Medications: No medications were administered Outcome: 11:51 Discharge ordered by . [facility] 12:07 Discharged to home ambulatory. tw2 12:07 Condition: stable 12:07 Discharge instructions given to patient, Instructed on discharge instructions, follow up and referral plans. no drinking with medication, no driving heavy equipment, medication usage, Demonstrated understanding of instructions, follow-up care, medications, Prescriptions given X 3. 12:08 Patient left the ED. tw2 Signatures: Frank Snowden PA PA jmm Sanford, Demi ds1 Anna Calhoun RN RN Brigid Doyle RN RN tw2
[2020-06-22 12:14] VITALS: BP 111/79; TEMP 97.7; O2SAT 98
== END 2020-06-22 12:08 | disposition home or self-care (01) ==
LOC: ER 11:24
DX: L03.113 Cellulitis of right upper limb (principal); F17.210 Nicotine dependence, cigarettes, uncomplicated
CPT/HCPCS: 99282